=== PATIENT | male | born 1970 | race Caucasian/White ===

== ENCOUNTER 2018-03-03 07:23 | Day surgery (SDC) | payer MEDICAID ==
[2018-03-03] MEDS: BUPIVACAINE 0.25% (MPF) 30 ML INJ
[~2018-03-03 07:23] MED LIST: CEFAZOLIN 1 GM INJ; CEFAZOLIN 1 GM/50 ML (PMX) 50 ML IVPB; DEXAMETHASONE 4 MG/ML 1 ML INJ; LIDOCAINE 2% (SDV) 5 ML INJ; METOCLOPRAMIDE 10 MG INJ; SOD CHLORIDE 0.9% 1,000 ML IV
[2018-03-03] MEDS ORDERED: MIDAZOLAM 1 MG/ML 2 ML INJ (08:07)
[2018-03-03] MEDS ORDERED: FENTAnyl 50 MCG/ML VIAL (08:07)
[2018-03-03] MEDS ORDERED: PROPOFOL 20 ML (08:09)
[2018-03-03 08:34] LABS: ADD MAN DIFF? NO
[2018-03-03 08:37] LABS: ABNORMAL IP MESSAGE 1; BASOPHIL # 0.1 10^3/ul (0.0-0.1); BASOPHILS % 1.1 % (0.0-2.0); EOSINOPHILS # 2.5 10^3/ul (0.0-0.5); EOSINOPHILS % 32.4 % (0.0-7.0); HEMATOCRIT 45.1 % (42.0-52.0); HEMOGLOBIN 15.8 g/dl (14.0-18.0); LYMPHOCYTES # 2.6 10^3/ul (0.8-2.9); MEAN CORPUSCULAR HEMOGLOBIN 30.6 pg (29.0-33.0); MEAN CORPUSCULAR VOLUME 87.4 fl (82.0-101.0); MEAN PLATELET VOLUME 10.3 fl (7.4-10.4); MONOCYTE # 0.5 10^3/ul (0.3-0.9); MONOCYTES % 6.9 % (0.0-11.0); NEUTROPHIL # 2.1 10^3/ul (1.6-7.5); NEUTROPHILS % 26.3 % (39.0-77.0); PLATELET COUNT 264 10^3/UL (140-415); POSITIVE DIFF @See below; RED BLOOD COUNT 5.16 10^6/ul (4.70-6.10); RED CELL DISTRIBUTION WIDTH 12.6 % (11.5-14.5)
[2018-03-03 08:37] LABS: WHITE BLOOD COUNT 7.9 10^3/ul (4.8-10.8)
[2018-03-03 08:40] LABS: PROTIME 12.2 Sec (11.9-14.9)
[2018-03-03 08:41] LABS: PARTIAL THROMBOPLASTIN TIME 26.4 Sec (25.0-35.0)
[2018-03-03 08:43] LABS: ALANINE AMINOTRANSFERASE 44 IU/L (13-69); ALBUMIN 4.3 g/dl (3.3-4.9); ALBUMIN/GLOBULIN RATIO 1.26; ALKALINE PHOSPHATASE 76 IU/L (42-121); ANION GAP 17 (8-16); ASPARTATE AMINO TRANSFERASE 37 IU/L (15-46); BILIRUBIN,INDIRECT 0.3 mg/dl (0-1.1); BILIRUBIN,TOTAL 0.3 mg/dl (0.2-1.3); CARBON DIOXIDE 27 mmol/L (21-31); CHLORIDE 102 mmol/L (97-110); GLUCOSE 169 mg/dl (70-220); TOTAL PROTEIN 7.7 g/dl (6.1-8.1)
[2018-03-03 08:47] LABS: BLOOD UREA NITROGEN 14 mg/dl (7-20); CREATININE 0.81 mg/dl (0.61-1.24); POTASSIUM 3.6 mmol/L (3.5-5.1); SODIUM 142 mmol/L (135-144)
[2018-03-03] MEDS ORDERED: DIPHENHYDRAMINE 50 MG INJ IV (09:00)
[2018-03-03] MEDS ORDERED: hydrALAzine 20 MG INJ IV (09:00)
[2018-03-03] MEDS ORDERED: LABETALOL HCL 20MG INJ IV (09:00)
[2018-03-03] MEDS ORDERED: HYDROmorphONE (0.2 MG/ML) 10ML SYG IV ×2 (09:00)
[2018-03-03] MEDS ORDERED: FENTAnyl 50 MCG/ML VIAL IV (09:00)
[2018-03-03] MEDS ORDERED: IPRATROPIUM (NEB) 0.5 MG/2.5 ML AMP HHN (09:00)
[2018-03-03] MEDS ORDERED: ONDANSETRON 4 MG INJ (09:14)
[2018-03-03] MEDS ORDERED: SUCCINYLCHOLINE CHLORIDE 100 MG/5 ML SYG IV (09:17)
[2018-03-03] MEDS ORDERED: ROCURONIUM 50 MG INJ (09:50)
[2018-03-03] MEDS ORDERED: POLYMYXIN/BACITRACIN 1L IRRIG (09:59)
[2018-03-03] MEDS ORDERED: HYDROCODONE/APAP (5/325) TAB PO (11:30)
[2018-03-03] MEDS: MEPERIDINE 25 MG INJ IV (11:35)
[2018-03-03] MEDS: ONDANSETRON 4 MG INJ IV (11:35)
[2018-03-03] MEDS: FENTAnyl 50 MCG/ML VIAL IV ×2 (11:36→11:52)
[2018-03-03] MEDS: KETOROLAC 30 MG INJ IV (12:04)
[2018-03-03] MEDS: HYDROmorphONE (0.2 MG/ML) 10ML SYG IV (12:12)
== END 2018-03-03 12:45 | disposition home or self-care (01) ==
LOC: SDS 07:23
DX: K43.6 Other and unspecified ventral hernia with obstruction, without gangrene (principal); E11.9 Type 2 diabetes mellitus without complications; I10 Essential (primary) hypertension
CPT/HCPCS: 49653; 80053; 82962; 85025; 85610; 85730; 88302